=== PATIENT | female | born 1980 | race Hispanic/Latino ===

== ENCOUNTER 2017-05-03 14:04 | Emergency (ER) | payer OTHER ==
[2017-05-03 14:11] VITALS: BP 141/83; PULSE 83; RESP 16; TEMP 98.4; O2SAT 100
--- NOTE | 2017-05-03 14:47 | ED PDOC ---
Upper Extremity Pain/Injury Time Seen by Provider: 05/03/17 14:16 Chief Complaint (Nursing): Upper Extremity Problem/Injury Chief Complaint (Provider): Left finger laceration History Per: Patient History/Exam Limitations: no limitations Onset/Duration Of Symptoms: Mins (20 minutes prior to arrival) Current Symptoms Are (Timing): Still Present Additional Complaint(s): Ivonne is a 36 y/o female who presents to the ED for evaluation of a finger laceration. She states that while cutting a roll today she cut the left index finger. At the time, she felt nauseous but now reports improvement. There is minimal active bleeding. Patients last tetanus was > 10 years ago. PMD: Provider TBD Past Medical History Reviewed: Historical Data, Nursing Documentation, Vital Signs Vital Signs: Last Vital Signs Temp 98.4 F 05/03/17 14:07 Pulse 83 05/03/17 14:07 Resp 16 05/03/17 14:07 BP 141/83 05/03/17 14:07 Pulse Ox 100 05/03/17 14:07 - Family History Family History: States: Unknown Family Hx - Home Medications Home Medications: Ambulatory Orders Medication Instructions Recorded Cephalexin [Keflex] 500 mg PO BID #14 capsule 05/03/17 - Allergies Allergies/Adverse Reactions: Allergies Allergy/AdvReac Type Severity Reaction Status Date / Time No Known Allergies Allergy Verified 05/03/17 14:06 Review of Systems ROS Statement: Except As Marked, All Systems Reviewed And Found Negative Skin: Positive for: Lesions (Laceration to left index finger) Physical Exam - Reviewed Nursing Documentation Reviewed: Yes Vital Signs Reviewed: Yes - Physical Exam Appears: Positive for: Well, Non-toxic, No Acute Distress Head Exam: Positive for: ATRAUMATIC, NORMAL INSPECTION, NORMOCEPHALIC Skin: Positive for: Normal Color, Warm, Dry Eye Exam: Positive for: Normal appearance Neck: Positive for: Normal Respiratory: Negative for: Respiratory Distress Extremity: Positive for: Normal ROM, Other (Superficial linear laceration to the left index finger. No active bleeding.) Neurologic/Psych: Positive for: Alert, Oriented. Negative for: Motor/Sensory Deficits - ECG O2 Sat by Pulse Oximetry: 100 Medical Decision Making Medical Decision Making: Time: 14:43 Initial Plan: --Tetanus vaccine --Wound irrigated with saline. Sterile dressing applied. Provided instructions for wound care. Patient is stable for discharge home. There is agreement to discharge plan. Return if symptoms persist or worsen. Scribe Attestation: Documented by Margaux Gurrola, acting as a scribe for Doreen Clemente PA-C Provider Scribe Attestation: All medical record entries made by the Scribe were at my direction and personally dictated by me. I have reviewed the chart and agree that the record accurately reflects my personal performance of the history, physical exam, medical decision making, and the department course for this patient. I have also personally directed, reviewed, and agree with the discharge instructions and disposition. Disposition - Clinical Impression Clinical Impression: Finger laceration, Tetanus toxoid vaccination administered at current visit - Disposition Disposition: Routine/Home Disposition Time: 15:05 Condition: GOOD Prescriptions: Cephalexin [Keflex] 500 mg PO BID #14 capsule Instructions: Finger Laceration (ED) Forms: [employer] ([place])
== END 2017-05-03 15:18 | disposition home or self-care (01) ==
LOC: H.ER 14:04
DX: S61.211A Laceration without foreign body of left index finger without damage to nail, initial encounter (principal); W26.0XXA Contact with knife, initial encounter; Y92.89 Other specified places as the place of occurrence of the external cause